=== PATIENT | male | born 1945 | race Caucasian/White ===

== ENCOUNTER 2017-11-17 22:41 | Observation (INO) | payer OTHER ==
[~2017-11-17] VITALS: Ht 175.3 cm; Wt 72.6 kg
[~2017-11-17 22:41] MED LIST: ASPIRIN EC81 M1 PO; AUGMENTIN 875875 M1 PO; AZITHROMYCIN 2250 MG PO; FLEXERIL PO; LEVOTHROID25 MCG PO; PREDNISONE 10 M10 M1 PO; PREDNISONE 10 M10 MG PO; PREDNISONE50 MG PO; PROAIR HFA8.5 GM IH; PROTONIX40 M2 PO; SIMVASTATIN40 MG; SPIRIVA; SYNTHROID75 MCG; TIROSINT75 MCG; [UNRECOGNIZED DRUG - REMARK]
[2017-11-17 23:21] LABS: HEMATOCRIT 28.4 % (42.0-52.0); HEMOGLOBIN 9.5 gm/dL (14.0-18.0); MCH 27.9 pg (26.0-34.0); MCHC 33.4 g/dL (28.0-37.0); MCV 83.6 fL (80.0-100.0); MPV 6.6 fl. (7.2-11.1); NUCLEATED RBCS 0 /100WBC; PLATELET COUNT* 77 thou/uL (150-400); RDW-CV 19.1 % (10.5-14.5); WBC 11.3 thou/uL (4.0-11.0)
[2017-11-17 23:24] LABS: BE -3.5 mmol/L (-2 to +3); HCO3 20.4 mmol/L (22.0-26.0); PCO2 32.6 mmHg (35.0-45.0); PO2 79.9 mmHg (75.0-100.0); pH 7.415 (7.340-7.450)
[2017-11-17 23:43] LABS: CALCIUM 8.7 mg/dL (8.5-10.1); CREATININE 1.1 mg/dL (0.6-1.3); POTASSIUM 4.8 mmol/L (3.5-5.1)
[2017-11-17 23:47] LABS: ALBUMIN 2.9 g/dL (3.4-5.0); MAGNESIUM 1.7 mg/dL (1.8-2.4); TOTAL BILIRUBIN 0.4 mg/dL (<0.1-1.0); TOTAL PROTEIN 6.6 g/dL (6.4-8.2)
[2017-11-17] MEDS ORDERED: AUGMENTIN 500-1 EACH PO (23:47)
[2017-11-17] MEDS ORDERED: DECADRON4 MG PO (23:50)
[2017-11-17] MEDS ORDERED: COMPAZINE10 MG PO (23:52)
[2017-11-17] MEDS ORDERED: LIPITOR 20 MG T20 M1 PO (23:53)
[2017-11-17] MEDS ORDERED: OXYCODONE HCL 55 MG PO (23:53)
[2017-11-17] MEDS ORDERED: LIORESAL 10 MG10 MG PO (23:54)
[2017-11-17] MEDS ORDERED: SYNTHROID112 MC1 PO (23:58)
[2017-11-18] MEDS ORDERED: ONDANSETRON HCL4 M2 PO (00:06)
[2017-11-18 00:29] LABS: ABSOLUTE LYMPHOCYTES 0.8 thou/uL (0.8-5.3); ABSOLUTE MONOCYTES 0.9 thou/uL (0.0-1.2); ABSOLUTE NEUTROPHILS 9.6 thou/uL (1.6-8.1); ANISOCYTOSIS 1+; PLATELET ESTIMATE DECREASED; POLYCHROMASIA 1+
--- NOTE | 2017-11-18 01:01 | NUR ---
PATIENT MOTIONING HE CANNOT BREATHE. PATIENT REMOVED HIS TRACH TUBE. NOTED TRACH TUBE OCCLUDED WITH MUCUS PLUG. PATIENT SUCTIONED AND SAO2 REMAINS 99 %
--- NOTE | 2017-11-18 01:46 | NUR ---
DR GARVIN REPLACED TRACH TUBE CANULA PER FAMILY REQUEST.
[2017-11-18 02:25] VITALS: BP 104/82
[2017-11-18 03:17] VITALS: BP 113/65
--- NOTE | 2017-11-18 03:54 | NUR ---
ARRIVED TO ROOM FROM ER ALERT AND NONVERBAL. TRACH MASKCONNECTED WITH HUMMIDITY AT 10. DENIES PAIN OR NAUSEA. ASSESSMENT DONE CHART. CURRENTLY RESTING QUIETLY IN BED WITH AT BED SIDE. BED ALARM ON. CALL LIGHT WITHIN REACH.
--- NOTE | 2017-11-18 06:29 | NUR ---
ALERT AND ORIENTED BUT NONVERBAL DUE TO TRACH AND VOICEBOX SURGERY FROM CA. DENIES NEED FOR PAIN OR NAUSEA MEDICATION. REMAINS ON TRACH MASK WITH 10 LPM 02 AND 35% HUMIDITY. NO S/S OF ACUTE DISTRESS. NO SUCTION NEED SINCE COMING UP TO TELE UNIT. WILL SEND DR MESSAGE REGARDING BLOOD SUGAR AND MAGMESIUM LEVELS ON LABS. PATIENT CURRENTLY RESTING QUIETLY IN BED. BED ALARM ON AND CALL LIGHT WITHIN REACH. REMAINS ON HEART MONITOR.
--- NOTE | 2017-11-18 07:15 | NUR ---
CHANGE OF SHIFT BEDSIDE REPORT GIVEN ASSUMED PATIENT CARE PATIENT SEEN IN BED AND ASLEEP
[2017-11-18 08:00] VITALS: BP 96/63
[2017-11-18 10:54] VITALS: BP 96/63
[2017-11-18 11:37] VITALS: BP 108/58
--- NOTE | 2017-11-18 13:52 | NUR ---
PATIENT DCD TO HOME IV PORT DEACCESSED AND HEART MONITOR REMOVED PERSONAL BELONGINGS RETURNED ASSISTED OUT VIA WC GOOD CONDITION
--- NOTE | 2017-11-18 14:59 | EKG ---
[place] [address] ELECTROCARDIOGRAM REPORT Name: KALERONAL Raiza Room: [address]#: [id number] Admission: 11/18/17 Attend Phys: Hany Baxter, Discharge: 11/18/17 Date of : 41 Report #: [id number] THIS REPORT FOR: //name// [facility] ED Test Date: 2017-11-17 Test Time: 22:46:18 Pat Name: RONAL HENLEY Department: Room: [address] Gender: M Multimedia Journalist: BD : 1945 Requested By: Hollie Nelson Order Number: [id number] [place] MD: Dwayne Bladnon Measurements Intervals [place] Rate: 119 P: 67 NV: 168 QRS: 15 QRSD: 79 T: 27 QT: 302 QTc: 425 Interpretive Statements Sinus tachycardia Low voltage, precordial leads Baseline wander in lead(s) I,II,aVR,aVL Compared to ECG 03/26/2013 10:35:43 Low QRS voltage now present Sinus rhythm no longer present Electronically Signed On 11-18-2017 14:59:14 CDT by Dwayne Blandon [email or web address] <ELECTRONICALLY SIGNED> By: Dwayne Blandon MD, FACC 11/18/17 [id number] Dwayne Blandon MD, FACC /EPI
[2017-11-19 02:05] LABS: GLYCOHEMOGLOBIN (HGB A1C) 7.6 % (4.8-5.6)
== END 2017-11-18 13:54 | disposition home or self-care (01) ==
LOC: M.ERS 22:41 → M.TBA-ER 11-18 01:08 → M.2W 11-18 01:08
PROVIDERS: Personal Emergency Response Attendant; ADMIT Family Medicine
DX: J95.03 Malfunction of tracheostomy stoma (principal); R06.03 Acute respiratory distress; T17.990A Other foreign object in respiratory tract, part unspecified in causing asphyxiation, initial encounter; J96.01 Acute respiratory failure with hypoxia; E78.5 Hyperlipidemia, unspecified; R73.9 Hyperglycemia, unspecified; C22.9 Malignant neoplasm of liver, not specified as primary or secondary; C32.9 Malignant neoplasm of larynx, unspecified; Z86.73 Personal history of transient ischemic attack (TIA), and cerebral infarction without residual deficits; Z87.891 Personal history of nicotine dependence

== ENCOUNTER 2017-12-22 00:58 | Emergency (ER) | payer OTHER ==
[~2017-12-22] VITALS: Ht 172.7 cm; Wt 70.8 kg
[~2017-12-22 00:58] MED LIST changes: +AUGMENTIN 500-1 EACH PO; +COMPAZINE10 MG PO; +DECADRON4 MG PO; +LIORESAL 10 MG10 MG PO; +LIPITOR 20 MG T20 M1 PO; +ONDANSETRON HCL4 M2 PO; +OXYCODONE HCL 55 MG PO; +SYNTHROID112 MC1 PO
[2017-12-22 01:34] LABS: ABSOLUTE BASOPHILS 0.1 thou/uL (0.0-0.2); ABSOLUTE EOSINOPHILS 0.1 thou/uL (0.0-0.7); ABSOLUTE LYMPHOCYTES 1.3 thou/uL (0.8-5.3); ABSOLUTE MONOCYTES 1.2 thou/uL (0.0-1.2); ABSOLUTE NEUTROPHILS 8.2 thou/uL (1.6-8.1); BASOPHILS 0.9 %; EOSINOPHILS 0.8 %; HEMOGLOBIN 8.5 gm/dL (14.0-18.0); LYMPHOCYTES 11.5 %; MCH 28.8 pg (26.0-34.0); MCHC 32.8 g/dL (28.0-37.0); MCV 87.9 fL (80.0-100.0); MONOCYTES 11.4 %; MPV 6.4 fl. (7.2-11.1); NUCLEATED RBCS 0 /100WBC; PLATELET COUNT* 377 thou/uL (150-400); POLYS 75.4 %; RBC 2.96 mil/uL (4.50-6.00); RDW-CV 19.9 % (10.5-14.5); WBC 10.9 thou/uL (4.0-11.0)
[2017-12-22 03:03] VITALS: BP 98/68
== END 2017-12-22 03:07 | disposition home or self-care (01) ==
LOC: M.ERS 00:58
PROVIDERS: Emergency Medicine Emergency Medical Services
DX: R04.0 Epistaxis (principal); E78.00 Pure hypercholesterolemia, unspecified; F17.210 Nicotine dependence, cigarettes, uncomplicated; Z85.05 Personal history of malignant neoplasm of liver